=== PATIENT | female | born 1985 | race Caucasian/White ===

== ENCOUNTER 2019-08-11 11:21 | Inpatient (IN) | payer MEDICAID, OTHER ==
[~2019-08-11] VITALS: Ht 160 cm; Wt 154.9 kg
[~2019-08-11 11:21] MED LIST: ARIP10TA8 PO; ARIP5TAB8 PO; DIVA-80 PO; DOCU-119 PO
[2019-08-11] MEDS ORDERED: LORazepam 2 MG/ML VIAL IM ONE (11:45)
[2019-08-11] MEDS ORDERED: HALOPERIDOL LACTATE 5 MG/ML VIAL IM ONE (11:45)
[2019-08-11 13:05] LABS: BASOPHILS % (AUTO) 0.9 % (0.0-2.0); EOSINOPHILS % (AUTO) 2.9 % (1.0-6.0); HEMATOCRIT 37.6 % (36-46); HEMOGLOBIN 12.8 g/dL (12.0-16.0); LYMPHOCYTES # (AUTO) 2.2 K/uL (1.0-4.8); LYMPHOCYTES % (AUTO) 35.7 % (22.0-44.0); MEAN CORPUSCULAR HEMOGLOBIN 31.1 pg (26.0-34.0); MEAN CORPUSCULAR HGB CONC 33.9 G/dL (31.0-37.0); MEAN CORPUSCULAR VOLUME 92 fL (80-100); MONOCYTES # (AUTO) 0.7 K/uL (0.1-1.0); MONOCYTES % (AUTO) 12.3 % (2.0-9.0); NEUTROPHILS # (AUTO) 2.9 K/uL (1.8-7.7); NEUTROPHILS % (AUTO) 48.2 % (40.0-70.0); PLATELET COUNT (AUTO) 257 K/uL (150-450); RED CELL DISTRIBUTION WIDTH 13.5 % (11.5-14.5)
[2019-08-11 13:19] LABS: ANION GAP 10 mmol/L (8-16); CALCIUM, TOTAL 8.8 mg/dL (8.8-10.5); CARBON DIOXIDE 26 mmol/L (22-29); CHLORIDE 104 mmol/L (98-107); CREATININE 0.49 mg/dL (0.60-1.30); GLOMERULAR FILTR. RATE CALC > 60 mL/min (>60); GLUCOSE,RANDOM 88 mg/dL (70-110); POTASSIUM 3.6 mmol/L (3.5-5.1); SODIUM SERUM 140 mmol/L (136-145); UREA NITROGEN, BLOOD 7 mg/dL (7-18)
[2019-08-11 13:25] LABS: ALANINE AMINOTRANSFERASE 19 U/L (12-78); ALKALINE PHOSPHATASE 94 U/L (46-116); ASPARTATE AMINOTRANSFERASE 19 U/L (15-37); BILIRUBIN,TOTAL 0.3 mg/dL (0.1-1.0); TOTAL PROTEIN, SERUM 8.1 g/dL (6.4-8.2)
[2019-08-11] MEDS ORDERED: 0.9% SODIUM CHLORIDE 10 ML SYRINGE IVP PRN (14:00)
[2019-08-11] MEDS ORDERED: ACETAMINOPHEN 325 MG TABLET PO PRN ×2 (14:00→15:15)
[2019-08-11] MEDS ORDERED: LOPERAMIDE HCL 2 MG CAPSULE PO PRN (15:15)
[2019-08-11] MEDS ORDERED: OLANZapine 5 MG RAPDIS TABLET PO PRN (15:15)
[2019-08-11] MEDS ORDERED: HydrOXYzine PAMOATE 50 MG CAPSULE PO PRN (15:15)
[2019-08-11] MEDS ORDERED: PROMETHAZINE HCL 25 MG TABLET PO PRN (15:15)
[2019-08-11] MEDS ORDERED: ZOLPIDEM TARTRATE 10 MG TABLET PO PRN (15:15)
[2019-08-11] MEDS ORDERED: MAG HYDROX/AL HYDROX/SIMETH ES 30 ML SUSPENSION UDCUP PO PRN (15:15)
[2019-08-11] MEDS ORDERED: MAGNESIUM HYDROXIDE SUSPENSION 30 ML UDCUP PO PRN (15:15)
[2019-08-11] MEDS ORDERED: GuaiFENesin/D-METHORPHAN [SUGAR-FREE] 200-20MG/10 ML SYRUP UDCUP PO PRN (15:15)
[2019-08-11] MEDS ORDERED: TUBERCULIN, PURIFIED PROTEIN DERIVATIVE 5 TU/0.1 ML SYRINGE ID ONE (15:15)
[2019-08-11] MEDS: THIAMINE 100 MG TABLET PO SCH (17:38)
[2019-08-11 17:53] LABS: HCG,QUANTITATIVE < 1 mIU/mL (0-6)
[2019-08-11 18:59] VITALS: BP 105/72
[2019-08-11] MEDS ORDERED: OLANZapine 5 MG RAPDIS TABLET PO SCH (21:00)
[2019-08-11] MEDS: DIVALPROEX SODIUM 250 MG ER TABLET PO SCH (21:01)
[2019-08-12 07:30] LABS: BASOPHILS % (AUTO) 0.7 % (0.0-2.0); EOSINOPHILS % (AUTO) 4.1 % (1.0-6.0); HEMATOCRIT 38.9 % (36-46); HEMOGLOBIN 13.2 g/dL (12.0-16.0); MEAN CORPUSCULAR HEMOGLOBIN 31.3 pg (26.0-34.0); MEAN CORPUSCULAR HGB CONC 33.8 G/dL (31.0-37.0); MEAN CORPUSCULAR VOLUME 92 fL (80-100); MONOCYTES # (AUTO) 0.6 K/uL (0.1-1.0); MONOCYTES % (AUTO) 10.9 % (2.0-9.0); NEUTROPHILS # (AUTO) 2.5 K/uL (1.8-7.7); NEUTROPHILS % (AUTO) 47.3 % (40.0-70.0); PLATELET COUNT (AUTO) 248 K/uL (150-450); RED BLOOD CELL COUNT(AUTO) 4.21 MIL/uL (4.00-5.20); RED CELL DISTRIBUTION WIDTH 13.9 % (11.5-14.5)
[2019-08-12 07:53] LABS: ALANINE AMINOTRANSFERASE 21 U/L (12-78); ALBUMIN 3.7 g/dL (3.4-5.0); ALKALINE PHOSPHATASE 92 U/L (46-116); ANION GAP 9 mmol/L (8-16); ASPARTATE AMINOTRANSFERASE 25 U/L (15-37); BILIRUBIN,TOTAL 0.3 mg/dL (0.1-1.0); CALCIUM, TOTAL 8.7 mg/dL (8.8-10.5); CARBON DIOXIDE 27 mmol/L (22-29); CHLORIDE 103 mmol/L (98-107); CHOLESTEROL 140 mg/dL (131-200); CREATININE 0.63 mg/dL (0.60-1.30); FREE T4 (FREE THYROXINE) 1.08 ng/dL (0.76-1.46); GLOMERULAR FILTR. RATE CALC > 60 mL/min (>60); GLUCOSE,RANDOM 81 mg/dL (70-110); HDL CHOLESTEROL 46 mg/dL (40-60); LDL CHOL (CALC.) 74 mg/dL (0-130); POTASSIUM 4.6 mmol/L (3.5-5.1); SODIUM SERUM 139 mmol/L (136-145); THYROID STIMULATING HORMONE 0.33 uIU/mL (0.36-3.74); TOTAL PROTEIN, SERUM 7.7 g/dL (6.4-8.2); TRIGLYCERIDES 98 mg/dL (15-150); UREA NITROGEN, BLOOD 8 mg/dL (7-18)
[2019-08-12 08:13] LABS: HEMOGLOBIN A1C 4.9 % (3.8-5.6)
[2019-08-12] MEDS: FOLIC ACID 1 MG TABLET PO SCH (08:40)
[2019-08-12] MEDS: THIAMINE 100 MG TABLET PO SCH ×3 (08:40→17:29)
[2019-08-12] MEDS: MULTIVITAMINS WITH MINERALS, THERAPEUTIC TABLET PO SCH (08:40)
[2019-08-12] MEDS: OLANZapine 5 MG RAPDIS TABLET PO PRN (08:41)
[2019-08-12] MEDS: LORazepam 2 MG TABLET PO PRN (08:41)
[2019-08-12] MEDS ORDERED: DiphenhydrAMINE HCL 50 MG/ML VIAL IM ONE (09:15)
[2019-08-12] MEDS ORDERED: LORazepam 2 MG/ML VIAL IM ONE (09:15)
[2019-08-12] MEDS ORDERED: HALOPERIDOL LACTATE 5 MG/ML VIAL IM ONE (09:15)
[2019-08-12] MEDS ORDERED: HALOPERIDOL LACTATE 5 MG/ML VIAL ONE (09:19)
[2019-08-12] MEDS ORDERED: DiphenhydrAMINE HCL 50 MG/ML VIAL ONE (09:20)
[2019-08-12 10:39] VITALS: BP 129/74
[2019-08-12 16:53] VITALS: BP 104/67
[2019-08-12] MEDS: DIVALPROEX SODIUM 250 MG ER TABLET PO SCH (20:25)
[2019-08-12] MEDS ORDERED: OLANZapine 10 MG RAPDIS TABLET PO SCH (21:00)
[2019-08-12] MEDS ORDERED: OLANZapine 5 MG RAPDIS TABLET PO SCH (21:00)
[2019-08-13] MEDS: FOLIC ACID 1 MG TABLET PO SCH (08:26)
[2019-08-13] MEDS: THIAMINE 100 MG TABLET PO SCH ×2 (08:26→16:21)
[2019-08-13] MEDS: MULTIVITAMINS WITH MINERALS, THERAPEUTIC TABLET PO SCH (08:26)
[2019-08-13] MEDS: OLANZapine 5 MG RAPDIS TABLET PO PRN (08:29)
[2019-08-13] MEDS: LORazepam 2 MG TABLET PO PRN (08:29)
[2019-08-13] MEDS: OLANZapine 10 MG RAPDIS TABLET PO SCH (20:37)
[2019-08-13] MEDS: DIVALPROEX SODIUM 250 MG ER TABLET PO SCH (20:39)
[2019-08-14] MEDS: THIAMINE 100 MG TABLET PO SCH ×2 (08:17→16:45)
[2019-08-14] MEDS: MULTIVITAMINS WITH MINERALS, THERAPEUTIC TABLET PO SCH (08:17)
[2019-08-14] MEDS: FOLIC ACID 1 MG TABLET PO SCH (08:17)
[2019-08-14] MEDS: LORazepam 2 MG TABLET PO PRN (08:18)
[2019-08-14] MEDS: OLANZapine 5 MG RAPDIS TABLET PO PRN (08:18)
[2019-08-14] MEDS: DIVALPROEX SODIUM 250 MG ER TABLET PO SCH (21:40)
[2019-08-14] MEDS: OLANZapine 10 MG RAPDIS TABLET PO SCH (21:41)
[2019-08-15 08:55] VITALS: BP 106/63
[2019-08-15] MEDS: THIAMINE 100 MG TABLET PO SCH ×2 (09:04→16:30)
[2019-08-15] MEDS: MULTIVITAMINS WITH MINERALS, THERAPEUTIC TABLET PO SCH (09:04)
[2019-08-15] MEDS: FOLIC ACID 1 MG TABLET PO SCH (09:04)
[2019-08-15] MEDS: LORazepam 2 MG TABLET PO PRN (11:53)
[2019-08-15] MEDS: OLANZapine 5 MG RAPDIS TABLET PO PRN (11:53)
[2019-08-15 16:32] VITALS: BP 109/79
[2019-08-15] MEDS ORDERED: NALT50TA PO (20:48)
[2019-08-15] MEDS ORDERED: OLAN10TA22 PO (20:48)
[2019-08-15] MEDS ORDERED: DIVA-85 PO (20:48)
[2019-08-15] MEDS: OLANZapine 10 MG RAPDIS TABLET PO SCH (20:54)
[2019-08-15] MEDS: DIVALPROEX SODIUM 250 MG ER TABLET PO SCH (20:54)
[2019-08-16] MEDS: LORazepam 2 MG TABLET PO PRN (07:48)
[2019-08-16] MEDS: FOLIC ACID 1 MG TABLET PO SCH (09:00)
[2019-08-16] MEDS: THIAMINE 100 MG TABLET PO SCH ×2 (09:00→16:27)
[2019-08-16] MEDS: MULTIVITAMINS WITH MINERALS, THERAPEUTIC TABLET PO SCH (09:00)
[2019-08-16 11:42] VITALS: BP 126/74
[2019-08-16 17:57] VITALS: BP 122/76
[2019-08-16] MEDS: OLANZapine 10 MG RAPDIS TABLET PO SCH (20:47)
[2019-08-16] MEDS: DIVALPROEX SODIUM 250 MG ER TABLET PO SCH (20:47)
[2019-08-17] MEDS: THIAMINE 100 MG TABLET PO SCH ×2 (08:38→16:20)
[2019-08-17] MEDS: FOLIC ACID 1 MG TABLET PO SCH (08:38)
[2019-08-17] MEDS: MULTIVITAMINS WITH MINERALS, THERAPEUTIC TABLET PO SCH (08:38)
[2019-08-17] MEDS: LORazepam 2 MG TABLET PO PRN ×2 (08:43→16:24)
[2019-08-17] MEDS: OLANZapine 5 MG RAPDIS TABLET PO PRN (09:21)
[2019-08-17 16:00] VITALS: BP 113/94
[2019-08-17] MEDS: OLANZapine 10 MG RAPDIS TABLET PO SCH (20:16)
[2019-08-17] MEDS: DIVALPROEX SODIUM 250 MG ER TABLET PO SCH (20:16)
[2019-08-18] MEDS: MULTIVITAMINS WITH MINERALS, THERAPEUTIC TABLET PO SCH (08:09)
[2019-08-18] MEDS: FOLIC ACID 1 MG TABLET PO SCH (08:09)
[2019-08-18] MEDS: LORazepam 2 MG TABLET PO PRN (08:09)
[2019-08-18] MEDS: OLANZapine 5 MG RAPDIS TABLET PO PRN (08:09)
[2019-08-18] MEDS: THIAMINE 100 MG TABLET PO SCH ×2 (08:10→16:41)
[2019-08-18 10:01] VITALS: BP 120/79
[2019-08-18 16:28] VITALS: BP 123/79
[2019-08-18] MEDS: DIVALPROEX SODIUM 250 MG ER TABLET PO SCH (20:17)
[2019-08-18] MEDS: OLANZapine 10 MG RAPDIS TABLET PO SCH (20:18)
[2019-08-18] MEDS: DiphenhydrAMINE HCL 25 MG CAPSULE PO SCH (21:52)
[2019-08-19] MEDS: MULTIVITAMINS WITH MINERALS, THERAPEUTIC TABLET PO SCH (08:24)
[2019-08-19] MEDS: OLANZapine 5 MG RAPDIS TABLET PO PRN ×3 (08:24→19:10)
[2019-08-19] MEDS: LORazepam 2 MG TABLET PO PRN ×3 (08:24→18:37)
[2019-08-19] MEDS: FOLIC ACID 1 MG TABLET PO SCH (08:24)
[2019-08-19] MEDS: THIAMINE 100 MG TABLET PO SCH ×2 (08:24→16:41)
[2019-08-19 16:14] VITALS: BP 104/64
[2019-08-19] MEDS: DIVALPROEX SODIUM 500 MG ER TABLET PO SCH (20:11)
[2019-08-19] MEDS: OLANZapine 10 MG RAPDIS TABLET PO SCH (20:11)
[2019-08-19] MEDS: DiphenhydrAMINE HCL 25 MG CAPSULE PO SCH (20:11)
[2019-08-20 05:44] VITALS: BP 116/81
[2019-08-20] MEDS: FOLIC ACID 1 MG TABLET PO SCH (09:19)
[2019-08-20] MEDS: THIAMINE 100 MG TABLET PO SCH ×2 (09:20→16:28)
[2019-08-20] MEDS: MULTIVITAMINS WITH MINERALS, THERAPEUTIC TABLET PO SCH (09:20)
[2019-08-20] MEDS: OLANZapine 5 MG RAPDIS TABLET PO PRN ×2 (09:21→15:48)
[2019-08-20] MEDS: LORazepam 2 MG TABLET PO PRN ×2 (09:21→15:48)
[2019-08-20 09:26] VITALS: BP 121/78
[2019-08-20] MEDS: DIVALPROEX SODIUM 500 MG ER TABLET PO SCH (20:02)
[2019-08-20] MEDS: DiphenhydrAMINE HCL 25 MG CAPSULE PO SCH (20:02)
[2019-08-20] MEDS: OLANZapine 10 MG RAPDIS TABLET PO SCH (20:03)
[2019-08-21 01:20] VITALS: BP 97/63
[2019-08-21] MEDS: DIVALPROEX SODIUM 500 MG ER TABLET PO SCH ×2 (08:24→21:18)
[2019-08-21] MEDS: MULTIVITAMINS WITH MINERALS, THERAPEUTIC TABLET PO SCH (08:24)
[2019-08-21] MEDS: OLANZapine 5 MG RAPDIS TABLET PO PRN ×2 (08:24→15:30)
[2019-08-21] MEDS: FOLIC ACID 1 MG TABLET PO SCH (08:24)
[2019-08-21] MEDS: LORazepam 2 MG TABLET PO PRN ×3 (08:24→20:20)
[2019-08-21] MEDS: THIAMINE 100 MG TABLET PO SCH (08:24)
[2019-08-21] MEDS: OLANZapine 10 MG RAPDIS TABLET PO SCH (21:19)
[2019-08-21] MEDS: DiphenhydrAMINE HCL 25 MG CAPSULE PO SCH (21:20)
[2019-08-22] MEDS: MULTIVITAMINS WITH MINERALS, THERAPEUTIC TABLET PO SCH (08:28)
[2019-08-22] MEDS: LORazepam 2 MG TABLET PO PRN (08:28)
[2019-08-22] MEDS: DIVALPROEX SODIUM 500 MG ER TABLET PO SCH (08:28)
[2019-08-22] MEDS: OLANZapine 5 MG RAPDIS TABLET PO PRN (08:29)
== END 2019-08-22 13:40 | disposition home or self-care (01) | DRG 885 ==
LOC: EMS 11:27 → 3EC 15:08
PROVIDERS: ADMIT Psychiatry & Neurology Psychiatry; ATTEND Psychiatry & Neurology Psychiatry
DX: F25.0 Schizoaffective disorder, bipolar type (principal); G93.40 Encephalopathy, unspecified; F60.0 Paranoid personality disorder; K59.00 Constipation, unspecified; F17.200 Nicotine dependence, unspecified, uncomplicated; E05.90 Thyrotoxicosis, unspecified without thyrotoxic crisis or storm; Z65.3 Problems related to other legal circumstances; Z91.19 Patient's noncompliance with other medical treatment and regimen; Z79.899 Other long term (current) drug therapy
CPT/HCPCS: 83036; 84439; 84443; 86592; 99291; G0480; J1200; J1630; J2060

== ENCOUNTER 2019-09-07 08:20 | Inpatient (IN) | payer MEDICAID ==
[~2019-09-07] VITALS: Ht 160 cm; Wt 70.0 kg
[~2019-09-07 08:20] MED LIST changes: -ARIP10TA8 PO; -ARIP5TAB8 PO; -DIVA-80 PO; +DIVA-85 PO; -DOCU-119 PO; +NALT50TA PO; +OLAN10TA22 PO
[2019-09-07] MEDS ORDERED: DiphenhydrAMINE HCL 50 MG/ML VIAL IM ONE (08:30)
[2019-09-07] MEDS ORDERED: LORazepam 2 MG/ML VIAL IM ONE (08:30)
[2019-09-07] MEDS ORDERED: HALOPERIDOL LACTATE 5 MG/ML VIAL IM ONE (08:30)
[2019-09-07] MEDS ORDERED: VENL25TA47 PO (09:31)
[2019-09-07 10:00] LABS: EOSINOPHILS % (AUTO) 1.6 % (1.0-6.0); HEMATOCRIT 36.8 % (36-46); HEMOGLOBIN 12.4 g/dL (12.0-16.0); LYMPHOCYTES % (AUTO) 28.9 % (22.0-44.0); MEAN CORPUSCULAR HEMOGLOBIN 31.2 pg (26.0-34.0); MEAN CORPUSCULAR HGB CONC 33.6 G/dL (31.0-37.0); MEAN CORPUSCULAR VOLUME 93 fL (80-100); MONOCYTES # (AUTO) 1.2 K/uL (0.1-1.0); MONOCYTES % (AUTO) 16.7 % (2.0-9.0); NEUTROPHILS # (AUTO) 3.6 K/uL (1.8-7.7); NEUTROPHILS % (AUTO) 51.8 % (40.0-70.0); PLATELET COUNT (AUTO) 214 K/uL (150-450); RED BLOOD CELL COUNT(AUTO) 3.96 MIL/uL (4.00-5.20); RED CELL DISTRIBUTION WIDTH 14.1 % (11.5-14.5)
[2019-09-07 10:09] LABS: ANION GAP 4 mmol/L (8-16); CARBON DIOXIDE 31 mmol/L (22-29); CHLORIDE 104 mmol/L (98-107); GLOMERULAR FILTR. RATE CALC > 60 mL/min (>60); GLUCOSE,RANDOM 75 mg/dL (70-110); POTASSIUM 3.3 mmol/L (3.5-5.1); SODIUM SERUM 139 mmol/L (136-145); UREA NITROGEN, BLOOD 12 mg/dL (7-18)
[2019-09-07 10:17] LABS: ALANINE AMINOTRANSFERASE 18 U/L (12-78); ALBUMIN 3.7 g/dL (3.4-5.0); ALKALINE PHOSPHATASE 74 U/L (46-116); ASPARTATE AMINOTRANSFERASE 20 U/L (15-37); BILIRUBIN,TOTAL 0.3 mg/dL (0.1-1.0); TOTAL PROTEIN, SERUM 7.7 g/dL (6.4-8.2)
[2019-09-07] MEDS ORDERED: ZOLPIDEM TARTRATE 10 MG TABLET PO PRN (11:15)
[2019-09-07] MEDS ORDERED: HALOPERIDOL 5 MG TABLET PO PRN (11:15)
[2019-09-08] MEDS: LORazepam 2 MG TABLET PO PRN (03:16)
[2019-09-08 06:16] LABS: AMPHET/METH SCREEN,URINE POSITIVE (NEGATIVE); BARBITURATE SCREEN, URINE NEGATIVE (NEGATIVE); BENZODIAZEPINES SCREEN,URINE NEGATIVE (NEGATIVE); CANNABINOID SCREEN,URINE POSITIVE (NEGATIVE); COCAINE SCREEN,URINE NEGATIVE (NEGATIVE); METHADONE SCREEN, URINE NEGATIVE (NEGATIVE); OPIATE SCREEN,URINE NEGATIVE (NEGATIVE)
[2019-09-08 06:18] LABS: PHENCYCLIDINE SCREEN,URINE NEGATIVE (NEGATIVE)
[2019-09-08 15:18] VITALS: BP 115/67
[2019-09-08 16:54] VITALS: BP 100/74
[2019-09-08] MEDS ORDERED: MAGNESIUM HYDROXIDE SUSPENSION 30 ML UDCUP PO PRN (18:15)
[2019-09-08] MEDS ORDERED: HydrOXYzine PAMOATE 50 MG CAPSULE PO PRN (18:15)
[2019-09-08] MEDS ORDERED: MAG HYDROX/AL HYDROX/SIMETH ES 30 ML SUSPENSION UDCUP PO PRN (18:15)
[2019-09-08] MEDS ORDERED: LOPERAMIDE HCL 2 MG CAPSULE PO PRN (18:15)
[2019-09-08] MEDS ORDERED: ACETAMINOPHEN 325 MG TABLET PO PRN (18:15)
[2019-09-08] MEDS ORDERED: PROMETHAZINE HCL 25 MG TABLET PO PRN (18:15)
[2019-09-08] MEDS ORDERED: GuaiFENesin/D-METHORPHAN [SUGAR-FREE] 200-20MG/10 ML SYRUP UDCUP PO PRN (18:15)
[2019-09-09 01:57] VITALS: BP 108/77
[2019-09-09 08:05] VITALS: BP 120/71
[2019-09-09] MEDS: FOLIC ACID 1 MG TABLET PO SCH (08:27)
[2019-09-09] MEDS: THIAMINE 100 MG TABLET PO SCH ×2 (08:27→16:27)
[2019-09-09] MEDS: MULTIVITAMINS WITH MINERALS, THERAPEUTIC TABLET PO SCH (08:28)
[2019-09-09] MEDS: LORazepam 2 MG TABLET PO PRN (08:28)
[2019-09-09] MEDS ORDERED: POTASSIUM CHLORIDE 20 MEQ ER TABLET PO ONE (12:00)
[2019-09-09 16:36] VITALS: BP 103/69
[2019-09-09] MEDS: DIVALPROEX SODIUM 500 MG ER TABLET PO SCH (19:58)
[2019-09-09] MEDS ORDERED: OLANZapine 5 MG RAPDIS TABLET PO SCH (21:00)
[2019-09-10 01:30] VITALS: BP 100/73
[2019-09-10 08:19] LABS: ANION GAP 7 mmol/L (8-16); CARBON DIOXIDE 27 mmol/L (22-29); CHLORIDE 105 mmol/L (98-107); CREATININE 0.58 mg/dL (0.60-1.30); GLOMERULAR FILTR. RATE CALC > 60 mL/min (>60); GLUCOSE,RANDOM 84 mg/dL (70-110); POTASSIUM 4.5 mmol/L (3.5-5.1); SODIUM SERUM 139 mmol/L (136-145); UREA NITROGEN, BLOOD 13 mg/dL (7-18)
[2019-09-10 08:39] LABS: VALPROIC ACID 68 mcg/mL (50-100)
[2019-09-10] MEDS: LORazepam 2 MG TABLET PO PRN ×2 (09:17→13:48)
[2019-09-10] MEDS: MULTIVITAMINS WITH MINERALS, THERAPEUTIC TABLET PO SCH (09:17)
[2019-09-10] MEDS: NALTREXONE HCL 50 MG TABLET PO SCH (09:17)
[2019-09-10] MEDS: THIAMINE 100 MG TABLET PO SCH ×2 (09:17→16:30)
[2019-09-10] MEDS: FOLIC ACID 1 MG TABLET PO SCH (09:17)
[2019-09-10] MEDS: OLANZapine 5 MG RAPDIS TABLET PO PRN ×2 (09:17→13:48)
[2019-09-10] MEDS ORDERED: HALOPERIDOL LACTATE 5 MG/ML VIAL ONE ×2 (11:52)
[2019-09-10] MEDS ORDERED: DiphenhydrAMINE HCL 50 MG/ML VIAL ONE (11:53)
[2019-09-10] MEDS ORDERED: LORazepam 2 MG/ML VIAL IM ONE (12:00)
[2019-09-10] MEDS ORDERED: DiphenhydrAMINE HCL 50 MG/ML VIAL IM ONE (12:00)
[2019-09-10] MEDS ORDERED: HALOPERIDOL LACTATE 5 MG/ML VIAL IM ONE (12:00)
[2019-09-10 16:47] VITALS: BP 109/68
[2019-09-10] MEDS ORDERED: ARIPiprazole ER SUSPENSION 400 MG PRE-FILLED DUAL CHAMBER SYRINGE IM ONE (18:45)
[2019-09-10] MEDS: OLANZapine 10 MG RAPDIS TABLET PO SCH (20:24)
[2019-09-10] MEDS: DIVALPROEX SODIUM 500 MG ER TABLET PO SCH (20:24)
[2019-09-11 03:31] VITALS: BP 114/71
[2019-09-11 08:42] VITALS: BP 116/74
[2019-09-11] MEDS: VENLAFAXINE HCL 75 MG ER CAPSULE PO SCH (08:59)
[2019-09-11] MEDS: THIAMINE 100 MG TABLET PO SCH ×2 (09:00→16:07)
[2019-09-11] MEDS: MULTIVITAMINS WITH MINERALS, THERAPEUTIC TABLET PO SCH (09:00)
[2019-09-11] MEDS: LORazepam 2 MG TABLET PO PRN (09:00)
[2019-09-11] MEDS: NALTREXONE HCL 50 MG TABLET PO SCH (09:00)
[2019-09-11] MEDS: FOLIC ACID 1 MG TABLET PO SCH (09:00)
[2019-09-11 17:05] VITALS: BP 124/75
[2019-09-11] MEDS: OLANZapine 10 MG RAPDIS TABLET PO SCH (20:20)
[2019-09-11] MEDS: DIVALPROEX SODIUM 500 MG ER TABLET PO SCH (20:20)
[2019-09-12 01:29] VITALS: BP 122/73
[2019-09-12] MEDS: VENLAFAXINE HCL 75 MG ER CAPSULE PO SCH (09:30)
[2019-09-12] MEDS: THIAMINE 100 MG TABLET PO SCH ×2 (09:30→16:38)
[2019-09-12] MEDS: MULTIVITAMINS WITH MINERALS, THERAPEUTIC TABLET PO SCH (09:30)
[2019-09-12] MEDS: FOLIC ACID 1 MG TABLET PO SCH (09:30)
[2019-09-12] MEDS: NALTREXONE HCL 50 MG TABLET PO SCH (09:30)
[2019-09-12] MEDS: LORazepam 2 MG TABLET PO PRN (09:32)
[2019-09-12] MEDS: OLANZapine 10 MG RAPDIS TABLET PO SCH (20:24)
[2019-09-12] MEDS: DIVALPROEX SODIUM 500 MG ER TABLET PO SCH (20:24)
[2019-09-13 06:39] VITALS: BP 90/62
[2019-09-13 08:03] VITALS: BP 109/58
[2019-09-13] MEDS: LORazepam 2 MG TABLET PO PRN ×2 (08:30→16:59)
[2019-09-13] MEDS: MULTIVITAMINS WITH MINERALS, THERAPEUTIC TABLET PO SCH (08:30)
[2019-09-13] MEDS: FOLIC ACID 1 MG TABLET PO SCH (08:30)
[2019-09-13] MEDS: VENLAFAXINE HCL 75 MG ER CAPSULE PO SCH (08:30)
[2019-09-13] MEDS: THIAMINE 100 MG TABLET PO SCH ×2 (08:30→16:59)
[2019-09-13] MEDS: NALTREXONE HCL 50 MG TABLET PO SCH (08:30)
[2019-09-13 16:36] VITALS: BP_SYST 100; BP_SYST 115; BP_DIAS 60; BP_DIAS 69
[2019-09-13] MEDS: OLANZapine 10 MG RAPDIS TABLET PO SCH (20:16)
[2019-09-13] MEDS: DIVALPROEX SODIUM 500 MG ER TABLET PO SCH (20:16)
[2019-09-14 05:58] VITALS: BP 112/73
[2019-09-14 08:08] VITALS: BP 116/71
[2019-09-14] MEDS: MULTIVITAMINS WITH MINERALS, THERAPEUTIC TABLET PO SCH (08:43)
[2019-09-14] MEDS: NALTREXONE HCL 50 MG TABLET PO SCH (08:43)
[2019-09-14] MEDS: FOLIC ACID 1 MG TABLET PO SCH (08:43)
[2019-09-14] MEDS: THIAMINE 100 MG TABLET PO SCH ×2 (08:44→16:27)
[2019-09-14] MEDS: VENLAFAXINE HCL 75 MG ER CAPSULE PO SCH (08:44)
[2019-09-14 16:25] VITALS: BP 121/67
[2019-09-14] MEDS: LORazepam 2 MG TABLET PO PRN (16:27)
[2019-09-14] MEDS: OLANZapine 10 MG RAPDIS TABLET PO SCH (20:26)
[2019-09-14] MEDS: DIVALPROEX SODIUM 500 MG ER TABLET PO SCH (20:26)
[2019-09-15 01:54] VITALS: BP 116/72
[2019-09-15] MEDS: MULTIVITAMINS WITH MINERALS, THERAPEUTIC TABLET PO SCH (08:43)
[2019-09-15] MEDS: NALTREXONE HCL 50 MG TABLET PO SCH (08:43)
[2019-09-15] MEDS: LORazepam 2 MG TABLET PO PRN (08:43)
[2019-09-15] MEDS: FOLIC ACID 1 MG TABLET PO SCH (08:43)
[2019-09-15] MEDS: THIAMINE 100 MG TABLET PO SCH ×2 (08:43→16:17)
[2019-09-15] MEDS: VENLAFAXINE HCL 75 MG ER CAPSULE PO SCH (08:43)
[2019-09-15] MEDS ORDERED: NALT50TA PO (14:51)
[2019-09-15] MEDS ORDERED: VENL-67 PO (14:51)
[2019-09-15] MEDS ORDERED: DIVA-80 PO (14:51)
[2019-09-15] MEDS ORDERED: OLAN10TA22 PO (14:51)
[2019-09-15 16:55] VITALS: BP 113/74
[2019-09-15] MEDS: DIVALPROEX SODIUM 500 MG ER TABLET PO SCH (21:13)
[2019-09-15] MEDS: OLANZapine 10 MG RAPDIS TABLET PO SCH (21:13)
[2019-09-16 01:16] VITALS: BP 100/84
[2019-09-16 08:14] VITALS: BP 110/69
[2019-09-16] MEDS: FOLIC ACID 1 MG TABLET PO SCH (08:27)
[2019-09-16] MEDS: VENLAFAXINE HCL 75 MG ER CAPSULE PO SCH (08:27)
[2019-09-16] MEDS: MULTIVITAMINS WITH MINERALS, THERAPEUTIC TABLET PO SCH (08:27)
[2019-09-16] MEDS: THIAMINE 100 MG TABLET PO SCH ×2 (08:27→16:42)
[2019-09-16] MEDS: NALTREXONE HCL 50 MG TABLET PO SCH (08:27)
[2019-09-16] MEDS: LORazepam 2 MG TABLET PO PRN (09:52)
[2019-09-16 17:21] VITALS: BP 111/72
[2019-09-16] MEDS: OLANZapine 10 MG RAPDIS TABLET PO SCH (21:11)
[2019-09-16] MEDS: DIVALPROEX SODIUM 500 MG ER TABLET PO SCH (21:11)
[2019-09-17 04:07] VITALS: BP 101/77
[2019-09-17 08:25] VITALS: BP 110/66
[2019-09-17] MEDS: THIAMINE 100 MG TABLET PO SCH ×3 (09:00→16:29)
[2019-09-17] MEDS: VENLAFAXINE HCL 75 MG ER CAPSULE PO SCH ×2 (09:00→12:34)
[2019-09-17] MEDS: NALTREXONE HCL 50 MG TABLET PO SCH ×2 (09:00→12:35)
[2019-09-17] MEDS: FOLIC ACID 1 MG TABLET PO SCH ×2 (09:00→12:35)
[2019-09-17] MEDS: MULTIVITAMINS WITH MINERALS, THERAPEUTIC TABLET PO SCH ×2 (09:00→12:35)
[2019-09-17] MEDS: LORazepam 2 MG TABLET PO PRN (12:35)
[2019-09-17 16:36] VITALS: BP 112/70
[2019-10-08] MEDS ORDERED: ARIPiprazole ER SUSPENSION 400 MG PRE-FILLED DUAL CHAMBER SYRINGE IM SCH (09:00)
== END 2019-09-17 18:00 | disposition home or self-care (01) | DRG 885 ==
LOC: EMS 08:21 → B3A 09-08 13:29 → EMS 09-08 13:30 → B3A 09-08 13:55
PROVIDERS: ADMIT Psychiatry & Neurology Psychiatry; ATTEND Psychiatry & Neurology Psychiatry
DX: F25.0 Schizoaffective disorder, bipolar type (principal); F29 Unspecified psychosis not due to a substance or known physiological condition; K59.00 Constipation, unspecified; D64.9 Anemia, unspecified; E87.6 Hypokalemia; F12.10 Cannabis abuse, uncomplicated; Z91.14 Patient's other noncompliance with medication regimen; Z91.19 Patient's noncompliance with other medical treatment and regimen; Z59.0 Homelessness; Z79.899 Other long term (current) drug therapy
CPT/HCPCS: 80074; 87081; G0480; J0401; J1200; J1630; J2060

== ENCOUNTER 2019-12-01 13:52 | Inpatient (IN) | payer MEDICAID, OTHER ==
[~2019-12-01] VITALS: Ht 160 cm; Wt 69.8 kg
[~2019-12-01 13:52] MED LIST changes: +DIVA-80 PO; -DIVA-85 PO; +VENL-67 PO
[2019-12-01 15:44] LABS: BASOPHILS % (AUTO) 0.7 % (0.0-2.0); EOSINOPHILS % (AUTO) 1.1 % (1.0-6.0); HEMATOCRIT 38.4 % (36-46); HEMOGLOBIN 12.9 g/dL (12.0-16.0); LYMPHOCYTES % (AUTO) 22.7 % (22.0-44.0); MEAN CORPUSCULAR HEMOGLOBIN 31.5 pg (26.0-34.0); MEAN CORPUSCULAR HGB CONC 33.7 G/dL (31.0-37.0); MEAN CORPUSCULAR VOLUME 94 fL (80-100); MONOCYTES # (AUTO) 0.7 K/uL (0.1-1.0); MONOCYTES % (AUTO) 8.3 % (2.0-9.0); NEUTROPHILS % (AUTO) 67.2 % (40.0-70.0); PLATELET COUNT (AUTO) 267 K/uL (150-450); RED CELL DISTRIBUTION WIDTH 13.1 % (11.5-14.5)
[2019-12-01] MEDS ORDERED: LOPERAMIDE HCL 2 MG CAPSULE PO PRN (15:45)
[2019-12-01] MEDS ORDERED: HydrOXYzine PAMOATE 50 MG CAPSULE PO PRN (15:45)
[2019-12-01] MEDS ORDERED: GuaiFENesin/D-METHORPHAN [SUGAR-FREE] 200-20MG/10 ML SYRUP UDCUP PO PRN (15:45)
[2019-12-01] MEDS ORDERED: OLANZapine 5 MG RAPDIS TABLET PO PRN (15:45)
[2019-12-01] MEDS ORDERED: PROMETHAZINE HCL 25 MG TABLET PO PRN (15:45)
[2019-12-01] MEDS ORDERED: ACETAMINOPHEN 325 MG TABLET PO PRN (15:45)
[2019-12-01] MEDS ORDERED: MAG HYDROX/AL HYDROX/SIMETH ES 30 ML SUSPENSION UDCUP PO PRN (15:45)
[2019-12-01] MEDS ORDERED: ZOLPIDEM TARTRATE 10 MG TABLET PO PRN (15:45)
[2019-12-01] MEDS ORDERED: MAGNESIUM HYDROXIDE SUSPENSION 30 ML UDCUP PO PRN (15:45)
[2019-12-01 15:53] LABS: ANION GAP 4 mmol/L (8-16); CALCIUM, TOTAL 9.2 mg/dL (8.8-10.5); CARBON DIOXIDE 29 mmol/L (22-29); CHLORIDE 101 mmol/L (98-107); CREATININE 0.73 mg/dL (0.60-1.30); GLOMERULAR FILTR. RATE CALC > 60 mL/min (>60); GLUCOSE,RANDOM 90 mg/dL (70-110); POTASSIUM 3.9 mmol/L (3.5-5.1); SODIUM SERUM 134 mmol/L (136-145); UREA NITROGEN, BLOOD 15 mg/dL (7-18)
[2019-12-01 16:04] LABS: ALANINE AMINOTRANSFERASE 17 U/L (12-78); ALBUMIN 4.1 g/dL (3.4-5.0); ALKALINE PHOSPHATASE 76 U/L (46-116); ASPARTATE AMINOTRANSFERASE 12 U/L (15-37); BILIRUBIN,TOTAL 0.4 mg/dL (0.1-1.0); HCG,QUANTITATIVE 1 mIU/mL (0-6); TOTAL PROTEIN, SERUM 7.6 g/dL (6.4-8.2)
[2019-12-01 19:22] LABS: COVID AG,FIA SOURCE NASOPHARYNGEAL
[2019-12-01] MEDS: THIAMINE 100 MG TABLET PO SCH (20:10)
[2019-12-01] MEDS ORDERED: OLANZapine 5 MG RAPDIS TABLET PO SCH (21:00)
[2019-12-01 21:31] VITALS: BP 127/79
[2019-12-01] MEDS: DIVALPROEX SODIUM 500 MG ER TABLET PO SCH (22:50)
[2019-12-01] MEDS ORDERED: INFLUENZA VIRUS VACCINE QVS 2020-21 (6MO+)/PF 60 MCG/0.5 ML SYRINGE IM ONE (23:45)
[2019-12-02 00:59] VITALS: BP 122/74
[2019-12-02 08:03] VITALS: BP 106/63
[2019-12-02] MEDS: THIAMINE 100 MG TABLET PO SCH ×2 (08:37→16:06)
[2019-12-02] MEDS: NALTREXONE HCL 50 MG TABLET PO SCH (08:37)
[2019-12-02] MEDS: OMEGA-3/DHA/EPA/FISH OIL 1,000 MG CAPSULE PO SCH (08:37)
[2019-12-02] MEDS: MULTIVITAMINS WITH MINERALS, THERAPEUTIC TABLET PO SCH (08:38)
[2019-12-02] MEDS: FOLIC ACID 1 MG TABLET PO SCH (08:38)
[2019-12-02] MEDS: LORazepam 2 MG TABLET PO PRN (08:38)
[2019-12-02 16:32] VITALS: BP 95/63
[2019-12-02 17:58] VITALS: BP 102/69
[2019-12-02] MEDS: DIVALPROEX SODIUM 500 MG ER TABLET PO SCH (20:02)
[2019-12-02] MEDS: OLANZapine 10 MG RAPDIS TABLET PO SCH (20:06)
[2019-12-03 02:08] VITALS: BP 112/70
[2019-12-03] MEDS: THIAMINE 100 MG TABLET PO SCH ×2 (09:06→20:11)
[2019-12-03] MEDS: MULTIVITAMINS WITH MINERALS, THERAPEUTIC TABLET PO SCH (09:06)
[2019-12-03] MEDS: NALTREXONE HCL 50 MG TABLET PO SCH (09:07)
[2019-12-03] MEDS: FOLIC ACID 1 MG TABLET PO SCH (09:07)
[2019-12-03] MEDS: OMEGA-3/DHA/EPA/FISH OIL 1,000 MG CAPSULE PO SCH (09:07)
[2019-12-03] MEDS: LORazepam 2 MG TABLET PO PRN (09:07)
[2019-12-03 09:18] VITALS: BP 100/62
[2019-12-03] MEDS ORDERED: ARIPiprazole ER SUSPENSION 400 MG PRE-FILLED DUAL CHAMBER SYRINGE IM ONE (13:30)
[2019-12-03 16:10] VITALS: BP 102/60
[2019-12-03] MEDS: OLANZapine 10 MG RAPDIS TABLET PO SCH (20:11)
[2019-12-03] MEDS: DIVALPROEX SODIUM 500 MG ER TABLET PO SCH (20:11)
[2019-12-04 01:24] VITALS: BP 101/66
[2019-12-04] MEDS: NALTREXONE HCL 50 MG TABLET PO SCH (08:23)
[2019-12-04] MEDS: FOLIC ACID 1 MG TABLET PO SCH (08:23)
[2019-12-04] MEDS: OMEGA-3/DHA/EPA/FISH OIL 1,000 MG CAPSULE PO SCH (08:23)
[2019-12-04] MEDS: MULTIVITAMINS WITH MINERALS, THERAPEUTIC TABLET PO SCH (08:23)
[2019-12-04] MEDS: THIAMINE 100 MG TABLET PO SCH ×2 (08:23→16:45)
[2019-12-04] MEDS ORDERED: DIVA-80 PO (15:36)
[2019-12-04] MEDS ORDERED: OLAN10TA22 PO (15:36)
[2019-12-04] MEDS ORDERED: OMEG-135 PO (15:36)
[2019-12-04] MEDS ORDERED: NALT50TA PO (15:36)
[2019-12-04] MEDS ORDERED: ARIPiprazole ER SUSPENSION 400 MG PRE-FILLED DUAL CHAMBER SYRINGE IM ONE (16:00)
[2019-12-04 17:18] VITALS: BP 120/65
[2019-12-04 18:40] VITALS: BP 120/65
[2019-12-04] MEDS: DIVALPROEX SODIUM 500 MG ER TABLET PO SCH (20:14)
[2019-12-04] MEDS: OLANZapine 10 MG RAPDIS TABLET PO SCH (20:14)
[2019-12-04] MEDS: LORazepam 2 MG TABLET PO PRN (20:17)
[2019-12-05 01:16] VITALS: BP 117/66
[2019-12-05] MEDS: OMEGA-3/DHA/EPA/FISH OIL 1,000 MG CAPSULE PO SCH (08:23)
[2019-12-05] MEDS: FOLIC ACID 1 MG TABLET PO SCH (08:23)
[2019-12-05] MEDS: NALTREXONE HCL 50 MG TABLET PO SCH (08:23)
[2019-12-05] MEDS: MULTIVITAMINS WITH MINERALS, THERAPEUTIC TABLET PO SCH (08:23)
[2019-12-05] MEDS: THIAMINE 100 MG TABLET PO SCH (08:23)
[2020-01-01] MEDS ORDERED: ARIPiprazole ER SUSPENSION 400 MG PRE-FILLED DUAL CHAMBER SYRINGE IM SCH (09:00)
== END 2019-12-05 13:15 | disposition home or self-care (01) | DRG 750 ==
LOC: EMS 13:52 → B3A 15:36 → UNDOADMIN 19:26 → B3A 20:16
PROVIDERS: ADMIT Psychiatry & Neurology Psychiatry; ATTEND Psychiatry & Neurology Psychiatry
DX: F25.9 Schizoaffective disorder, unspecified (principal); E87.1 Hypo-osmolality and hyponatremia; F12.90 Cannabis use, unspecified, uncomplicated; F15.90 Other stimulant use, unspecified, uncomplicated; F17.210 Nicotine dependence, cigarettes, uncomplicated; Z20.828 Contact with and (suspected) exposure to other viral communicable diseases; R45.87 Impulsiveness; Z55.9 Problems related to education and literacy, unspecified; Z59.9 Problem related to housing and economic circumstances, unspecified; Z91.19 Patient's noncompliance with other medical treatment and regimen
CPT/HCPCS: 87426; G0480; J0401

== ENCOUNTER 2020-01-27 16:10 | Inpatient (IN) | payer MEDICAID, OTHER ==
[~2020-01-27] VITALS: Ht 157.5 cm; Wt 66.2 kg
[~2020-01-27 16:10] MED LIST changes: +OMEG-135 PO; -VENL-67 PO
[2020-01-27 19:07] LABS: EOSINOPHILS % (AUTO) 1.7 % (1.0-6.0); HEMATOCRIT 37.5 % (36-46); HEMOGLOBIN 12.6 g/dL (12.0-16.0); LYMPHOCYTES # (AUTO) 2.5 K/uL (1.0-4.8); LYMPHOCYTES % (AUTO) 33.8 % (22.0-44.0); MEAN CORPUSCULAR HEMOGLOBIN 31.1 pg (26.0-34.0); MEAN CORPUSCULAR HGB CONC 33.6 G/dL (31.0-37.0); MEAN CORPUSCULAR VOLUME 93 fL (80-100); MONOCYTES # (AUTO) 0.9 K/uL (0.1-1.0); MONOCYTES % (AUTO) 11.6 % (2.0-9.0); NEUTROPHILS # (AUTO) 3.9 K/uL (1.8-7.7); NEUTROPHILS % (AUTO) 51.9 % (40.0-70.0); PLATELET COUNT (AUTO) 234 K/uL (150-450); RED BLOOD CELL COUNT(AUTO) 4.04 MIL/uL (4.00-5.20); RED CELL DISTRIBUTION WIDTH 13.2 % (11.5-14.5)
[2020-01-27 19:27] LABS: ANION GAP 9 mmol/L (8-16); CARBON DIOXIDE 28 mmol/L (22-29); CHLORIDE 101 mmol/L (98-107); GLOMERULAR FILTR. RATE CALC > 60 mL/min (>60); GLUCOSE,RANDOM 79 mg/dL (70-110); POTASSIUM 3.3 mmol/L (3.5-5.1); SODIUM SERUM 138 mmol/L (136-145); UREA NITROGEN, BLOOD 10 mg/dL (7-18)
[2020-01-27 19:33] LABS: ALANINE AMINOTRANSFERASE 30 U/L (12-78); ALBUMIN 4.1 g/dL (3.4-5.0); ALKALINE PHOSPHATASE 80 U/L (46-116); ASPARTATE AMINOTRANSFERASE 74 U/L (15-37); BILIRUBIN,TOTAL 0.4 mg/dL (0.1-1.0); TOTAL PROTEIN, SERUM 8.1 g/dL (6.4-8.2)
[2020-01-27 20:56] LABS: VALPROIC ACID < 3 mcg/mL (50-100)
[2020-01-27 21:52] LABS: COVID AG,FIA SOURCE NASOPHARYNGEAL
[2020-01-27] MEDS ORDERED: POTASSIUM CHLORIDE 20 MEQ ER TABLET PO ONE (22:45)
[2020-01-27] MEDS ORDERED: ZOLPIDEM TARTRATE 10 MG TABLET PO PRN (23:00)
[2020-01-28 00:32] VITALS: BP 125/71
[2020-01-28] MEDS ORDERED: INFLUENZA VIRUS VACCINE QVS 2020-21 (6MO+)/PF 60 MCG/0.5 ML SYRINGE IM ONE (00:45)
[2020-01-28 00:52] VITALS: BP 116/72
[2020-01-28] MEDS ORDERED: CloNIDine HCL 0.1 MG TABLET PO PRN (07:30)
[2020-01-28] MEDS ORDERED: LOPERAMIDE HCL 2 MG CAPSULE PO PRN (07:30)
[2020-01-28] MEDS ORDERED: ACETAMINOPHEN 325 MG TABLET PO PRN (07:30)
[2020-01-28] MEDS ORDERED: ALBUTEROL SULFATE HFA 90 MCG/PUFF 8 GM INHALER IH PRN (07:30)
[2020-01-28] MEDS ORDERED: PETROLATUM,WHITE 28 GM JELLY TP PRN (07:30)
[2020-01-28] MEDS ORDERED: MAGNESIUM HYDROXIDE SUSPENSION 30 ML UDCUP PO PRN (07:30)
[2020-01-28] MEDS ORDERED: MAG HYDROX/AL HYDROX/SIMETH ES 30 ML SUSPENSION UDCUP PO PRN (07:30)
[2020-01-28] MEDS ORDERED: IBUPROFEN 400 MG TABLET PO PRN (07:30)
[2020-01-28] MEDS ORDERED: DOCUSATE SODIUM 100 MG CAPSULE PO PRN (07:30)
[2020-01-28] MEDS ORDERED: ONDANSETRON HCL 4 MG TABLET PO PRN (07:30)
[2020-01-28] MEDS ORDERED: GuaiFENesin/D-METHORPHAN [SUGAR-FREE] 200-20MG/10 ML SYRUP UDCUP PO PRN (07:30)
[2020-01-28] MEDS ORDERED: NICOTINE 14 MG/24 HOUR PATCH TD PRN (07:30)
[2020-01-28 08:06] VITALS: BP 108/70
[2020-01-28] MEDS: HALOPERIDOL 5 MG TABLET PO PRN (08:08)
[2020-01-28] MEDS: LORazepam 2 MG TABLET PO PRN ×2 (08:08→16:13)
[2020-01-28 08:18] VITALS: BP 101/63
[2020-01-28 16:06] VITALS: BP 110/70
[2020-01-28] MEDS: OLANZapine 10 MG RAPDIS TABLET PO SCH (20:27)
[2020-01-28] MEDS: DIVALPROEX SODIUM 500 MG DR TABLET PO SCH (20:27)
[2020-01-29 00:43] VITALS: BP 104/75
[2020-01-29 07:56] LABS: CHOL/HDL RATIO 2.8 (3.9-5.7); POTASSIUM 4.7 mmol/L (3.5-5.1)
[2020-01-29] MEDS: LORazepam 2 MG TABLET PO PRN (08:10)
[2020-01-29] MEDS: HALOPERIDOL 5 MG TABLET PO PRN (08:10)
[2020-01-29] MEDS: DIVALPROEX SODIUM 500 MG DR TABLET PO SCH ×2 (08:10→20:09)
[2020-01-29 08:25] VITALS: BP 120/66
[2020-01-29 16:02] VITALS: BP 126/66
[2020-01-29] MEDS: OLANZapine 10 MG RAPDIS TABLET PO SCH (20:09)
[2020-01-30 01:20] VITALS: BP 120/77
[2020-01-30 08:12] VITALS: BP 120/69
[2020-01-30] MEDS: DIVALPROEX SODIUM 500 MG DR TABLET PO SCH ×2 (08:44→19:58)
[2020-01-30] MEDS: HALOPERIDOL 5 MG TABLET PO PRN (08:44)
[2020-01-30] MEDS: LORazepam 2 MG TABLET PO PRN ×2 (09:24→16:17)
[2020-01-30 16:13] VITALS: BP 109/63
[2020-01-30] MEDS: OLANZapine 10 MG RAPDIS TABLET PO SCH (19:58)
[2020-01-31 06:05] VITALS: BP 120/72
[2020-01-31 08:39] VITALS: BP 114/63
[2020-01-31] MEDS: DIVALPROEX SODIUM 500 MG DR TABLET PO SCH ×2 (08:53→20:08)
[2020-01-31] MEDS: LORazepam 2 MG TABLET PO PRN ×2 (10:19→16:14)
[2020-01-31] MEDS: HALOPERIDOL 5 MG TABLET PO PRN ×2 (10:19→16:14)
[2020-01-31 16:06] VITALS: BP 118/89
[2020-01-31] MEDS: OLANZapine 10 MG RAPDIS TABLET PO SCH (20:09)
[2020-02-01 05:32] VITALS: BP 112/70
[2020-02-01] MEDS: HALOPERIDOL 5 MG TABLET PO PRN ×2 (08:25→15:40)
[2020-02-01] MEDS: LORazepam 2 MG TABLET PO PRN ×2 (08:25→15:40)
[2020-02-01] MEDS: DIVALPROEX SODIUM 500 MG DR TABLET PO SCH ×2 (08:25→20:08)
[2020-02-01 08:39] VITALS: BP 123/70
[2020-02-01 16:16] VITALS: BP 119/76
[2020-02-01] MEDS ORDERED: ChlorproMAZINE HCL 50 MG/2 ML AMP ONE (16:34)
[2020-02-01] MEDS ORDERED: DiphenhydrAMINE HCL 50 MG/ML VIAL ONE (16:34)
[2020-02-01] MEDS ORDERED: DiphenhydrAMINE HCL 50 MG/ML VIAL IM ONE (16:45)
[2020-02-01] MEDS ORDERED: ChlorproMAZINE HCL 50 MG/2 ML AMP IM ONE (16:45)
[2020-02-01 17:31] VITALS: BP 121/60
[2020-02-01] MEDS: OLANZapine 10 MG RAPDIS TABLET PO SCH (20:08)
[2020-02-02 01:39] VITALS: BP 114/68
[2020-02-02] MEDS: LORazepam 2 MG TABLET PO PRN ×2 (08:01→17:37)
[2020-02-02] MEDS: DIVALPROEX SODIUM 500 MG DR TABLET PO SCH ×2 (08:01→20:19)
[2020-02-02 08:26] VITALS: BP 115/69
[2020-02-02] MEDS: HALOPERIDOL 5 MG TABLET PO PRN ×2 (08:31→17:37)
[2020-02-02] MEDS ORDERED: DiphenhydrAMINE HCL 50 MG/ML VIAL IM ONE ×2 (10:15→10:30)
[2020-02-02] MEDS ORDERED: LORazepam 2 MG/ML VIAL ONE (10:15)
[2020-02-02] MEDS ORDERED: HALOPERIDOL LACTATE 5 MG/ML VIAL IM ONE ×2 (10:15→10:30)
[2020-02-02] MEDS ORDERED: LORazepam 2 MG/ML VIAL IM ONE ×2 (10:15→10:30)
[2020-02-02 11:30] VITALS: BP 128/70
[2020-02-02 16:06] VITALS: BP 108/79
[2020-02-02] MEDS: OLANZapine 10 MG RAPDIS TABLET PO SCH (20:19)
[2020-02-03 01:17] VITALS: BP 100/73
[2020-02-03 08:22] VITALS: BP 110/66
[2020-02-03] MEDS: HALOPERIDOL 5 MG TABLET PO PRN ×3 (08:49→18:08)
[2020-02-03] MEDS: DIVALPROEX SODIUM 500 MG DR TABLET PO SCH ×2 (08:49→20:45)
[2020-02-03] MEDS: LORazepam 2 MG TABLET PO PRN ×3 (08:49→18:08)
[2020-02-03 16:12] VITALS: BP 122/76
[2020-02-03] MEDS: OLANZapine 10 MG RAPDIS TABLET PO SCH (20:46)
[2020-02-04 01:14] VITALS: BP 112/77
[2020-02-04 08:00] VITALS: BP 124/76
[2020-02-04] MEDS: HALOPERIDOL 5 MG TABLET PO PRN ×2 (08:07→15:50)
[2020-02-04] MEDS: DIVALPROEX SODIUM 500 MG DR TABLET PO SCH ×2 (08:07→20:38)
[2020-02-04] MEDS: LORazepam 2 MG TABLET PO PRN ×2 (08:07→15:50)
[2020-02-04] MEDS: OLANZapine 10 MG RAPDIS TABLET PO SCH (20:38)
[2020-02-05 01:50] VITALS: BP 120/73
[2020-02-05] MEDS: DIVALPROEX SODIUM 500 MG DR TABLET PO SCH (08:13)
[2020-02-05] MEDS: HALOPERIDOL 5 MG TABLET PO PRN (08:13)
[2020-02-05] MEDS: LORazepam 2 MG TABLET PO PRN (08:14)
[2020-02-05 08:31] VITALS: BP 110/67
[2020-02-05] MEDS ORDERED: DIVA-112 PO (09:44)
[2020-02-05] MEDS ORDERED: OLAN10TA22 PO (09:44)
== END 2020-02-05 12:00 | disposition home or self-care (01) | DRG 750 ==
LOC: EMS 16:10 → B3A 22:00
DX: F25.0 Schizoaffective disorder, bipolar type (principal); E87.6 Hypokalemia; R74.01 Elevation of levels of liver transaminase levels; F19.10 Other psychoactive substance abuse, uncomplicated; Z79.899 Other long term (current) drug therapy; Z87.820 Personal history of traumatic brain injury; Z20.828 Contact with and (suspected) exposure to other viral communicable diseases
CPT/HCPCS: 84132; 87426; G0480; J1200; J1630; J2060; J3230

== ENCOUNTER 2024-04-21 17:46 | Inpatient (IN) | payer MEDICAID, OTHER ==
[~2024-04-21] VITALS: Ht 154.9 cm; Wt 69.9 kg
[~2024-04-21 17:46] MED LIST changes: +DIVA-112 PO; -DIVA-80 PO; -NALT50TA PO; -OMEG-135 PO
[2024-04-21 20:52] LABS: BASOPHILS % (AUTO) 0.6 % (0.0-2.0); EOSINOPHILS % (AUTO) 0.8 % (1.0-6.0); HEMATOCRIT 38.2 % (36-46); HEMOGLOBIN 12.8 g/dL (12.0-16.0); LYMPHOCYTES # (AUTO) 2.8 K/uL (1.0-4.8); LYMPHOCYTES % (AUTO) 35.1 % (22.0-44.0); MEAN CORPUSCULAR HEMOGLOBIN 30.6 pg (26.0-34.0); MEAN CORPUSCULAR HGB CONC 33.6 G/dL (31.0-37.0); MEAN CORPUSCULAR VOLUME 91 fL (80-100); MONOCYTES # (AUTO) 1.2 K/uL (0.1-1.0); MONOCYTES % (AUTO) 15.3 % (2.0-9.0); NEUTROPHILS # (AUTO) 3.8 K/uL (1.8-7.7); NEUTROPHILS % (AUTO) 48.2 % (40.0-70.0); PLATELET COUNT (AUTO) 249 K/uL (150-450); RED BLOOD CELL COUNT(AUTO) 4.19 MIL/uL (4.00-5.20); RED CELL DISTRIBUTION WIDTH 13.5 % (11.5-14.5)
[2024-04-21 21:03] LABS: ANION GAP 8 mmol/L (8-16); CALCIUM, TOTAL 9.9 mg/dL (8.8-10.5); CARBON DIOXIDE 28 mmol/L (22-29); CHLORIDE 104 mmol/L (98-107); CREATININE 0.59 mg/dL (0.60-1.30); GLOMERULAR FILTR. RATE CALC > 60 mL/min (>60); GLUCOSE,RANDOM 78 mg/dL (70-110); POTASSIUM 4.4 mmol/L (3.5-5.1); SODIUM SERUM 140 mmol/L (136-145); UREA NITROGEN, BLOOD 14 mg/dL (7-18)
[2024-04-21 21:09] LABS: ALCOHOL, BLOOD (SERUM) < 3 mg/dL (0-10)
[2024-04-21 21:14] LABS: HCG,QUANTITATIVE < 1 mIU/mL (0-6)
[2024-04-21 21:23] LABS: VALPROIC ACID < 3 mcg/mL (50-100)
[2024-04-21 22:07] LABS: COVID AG,FIA SOURCE NPH
[2024-04-21] MEDS ORDERED: MAG HYDROX/ALUMINUM HYD/SIMETH ES 30 ML SUSPENSION UDCUP PO PRN (22:15)
[2024-04-21] MEDS ORDERED: LOPERAMIDE HCL 2 MG CAPSULE PO PRN (22:15)
[2024-04-21] MEDS ORDERED: HydrOXYzine PAMOATE 50 MG CAPSULE PO PRN (22:15)
[2024-04-21] MEDS ORDERED: GuaiFENesin/D-METHORPHAN [SUGAR-FREE] 200-20MG/10 ML SYRUP UDCUP PO PRN (22:15)
[2024-04-21] MEDS ORDERED: MAGNESIUM HYDROXIDE SUSPENSION 30 ML UDCUP PO PRN (22:15)
[2024-04-21] MEDS ORDERED: PROMETHAZINE HCL 25 MG TABLET PO PRN (22:15)
[2024-04-21] MEDS ORDERED: TUBERCULIN, PURIFIED PROTEIN DERIVATIVE 5 TU/0.1 ML SYRINGE ID ONE (22:15)
[2024-04-21 22:26] LABS: SARS-COV2 (COVID) ANTIGEN,FIA Negative (Negative)
[2024-04-21] MEDS: LORazepam 2 MG TABLET PO ONE (22:32)
[2024-04-21] MEDS: TraZODone HCL 50 MG TABLET PO ONE (22:32)
[2024-04-22 03:17] VITALS: RESP 16
[2024-04-22] MEDS ORDERED: INFLUENZA VIRUS VACCINE TVS (6MO+) 2024-25/PF 45 MCG/0.5 ML SYRINGE IM. ONE (04:30)
[2024-04-22 08:49] VITALS: RESP 17
[2024-04-22] MEDS: PALIPERIDONE PALMITATE 234 MG/1.5 ML SYRINGE IM ONE ×2 (09:00→14:57)
[2024-04-22 09:24] LABS: CHOL/HDL RATIO 2.5 (3.9-5.7); FREE T4 (FREE THYROXINE) 1.04 ng/dL (0.76-1.46); HEMOGLOBIN A1C 5.2 % (3.8-5.6); THYROID STIMULATING HORMONE 0.64 uIU/mL (0.36-3.74)
[2024-04-22] MEDS: MULTIVITAMINS WITH MINERALS, THERAPEUTIC TABLET PO SCH (09:37)
[2024-04-22] MEDS: FOLIC ACID 1 MG TABLET PO SCH (09:37)
[2024-04-22] MEDS: FLUoxetine HCL 20 MG CAPSULE PO SCH (09:37)
[2024-04-22] MEDS: NALTREXONE HCL 50 MG TABLET PO SCH (09:37)
[2024-04-22] MEDS: THIAMINE 100 MG TABLET PO SCH (09:37)
[2024-04-22 15:10] VITALS: BP 150/89
[2024-04-22] MEDS: OLANZapine 5 MG RAPDIS TABLET PO PRN (15:13)
[2024-04-22] MEDS: LORazepam 2 MG TABLET PO PRN (15:13)
[2024-04-22] MEDS: MELATONIN 5 MG TABLET PO SCH (20:16)
[2024-04-22] MEDS: OLANZapine 5 MG RAPDIS TABLET PO SCH (20:17)
[2024-04-22 21:00] VITALS: BP 90/61; PULSE 74; RESP 18; TEMP 97.3; O2SAT 98
[2024-04-23 06:07] LABS: HEPATITIS C AB (EIA) Non Reactive (Non Reactive)
[2024-04-23 08:02] VITALS: RESP 16
[2024-04-23] MEDS: DIVALPROEX SODIUM 500 MG ER TABLET PO SCH (16:29)
[2024-04-23 20:05] VITALS: RESP 17
[2024-04-23] MEDS: OLANZapine 10 MG RAPDIS TABLET PO SCH (20:44)
[2024-04-23 21:31] LABS: GLUCOMETER DEV NAME(LOC) BV2S.; GLUCOSE,POINT OF CARE 92 MG/DL (70-110)
[2024-04-24] MEDS: FLUoxetine HCL 20 MG CAPSULE PO SCH (09:03)
[2024-04-24] MEDS: LORazepam 2 MG/ML VIAL IM ONE (13:29)
[2024-04-24] MEDS: HALOPERIDOL LACTATE 5 MG/ML VIAL IM ONE (13:31)
[2024-04-24] MEDS: DiphenhydrAMINE HCL 50 MG/ML VIAL IM ONE (13:32)
[2024-04-24 18:15] VITALS: BP 125/99; PULSE 102; RESP 20; TEMP 97.2; O2SAT 95
[2024-04-25 08:37] VITALS: BP 119/80; PULSE 88; RESP 18; TEMP 97.5; O2SAT 96
[2024-04-25] MEDS ORDERED: FLUoxetine HCL 20 MG CAPSULE PO SCH (09:00)
[2024-04-25 20:47] VITALS: BP 109/62; PULSE 79; RESP 18; TEMP 97.5; O2SAT 97
[2024-04-25] MEDS: ARIPiprazole 5 MG TABLET PO SCH (21:11)
[2024-04-26 08:01] VITALS: BP 110/85; PULSE 85; RESP 16; TEMP 98.6; O2SAT 96
[2024-04-26] MEDS: DULoxetine HCL 20 MG CAPSULE PO SCH (08:56)
[2024-04-26] MEDS ORDERED: PALIPERIDONE PALMITATE 156 MG/ML SYRINGE IM ONE (09:00)
[2024-04-26] MEDS: ARIPiprazole ER SUSPENSION 400 MG VIAL IM ONE (09:00)
[2024-04-26 21:26] VITALS: BP 134/78; PULSE 100; RESP 18; TEMP 97.5; O2SAT 97
[2024-04-27 20:05] VITALS: BP 118/71; PULSE 88; RESP 18; TEMP 98; O2SAT 97
[2024-04-28 08:00] VITALS: BP 111/70; PULSE 91; RESP 18; TEMP 97.2; O2SAT 99
[2024-04-28 09:24] VITALS: BP 124/84; PULSE 75; RESP 16; TEMP 97.2; O2SAT 99
[2024-04-28] MEDS: GABAPENTIN 300 MG CAPSULE PO SCH (21:00)
[2024-04-28] MEDS: ZOLPIDEM TARTRATE 10 MG TABLET PO PRN (21:23)
[2024-04-29] MEDS: DULoxetine HCL 30 MG CAPSULE PO SCH (09:44)
[2024-04-29 10:13] VITALS: BP 120/52; PULSE 75; RESP 18; TEMP 97.2; O2SAT 97
[2024-04-29 20:42] VITALS: BP 118/81; PULSE 105; RESP 18; TEMP 97.9; O2SAT 95
[2024-04-29] MEDS ORDERED: OLANZapine 5 MG RAPDIS TABLET PO SCH (21:00)
[2024-04-29] MEDS: OLANZapine 10 MG RAPDIS TABLET PO SCH (21:11)
[2024-04-30] MEDS: GABAPENTIN 400 MG CAPSULE PO SCH (09:00)
[2024-04-30] MEDS: DULoxetine HCL 20 MG CAPSULE PO SCH (09:00)
[2024-04-30 10:04] VITALS: RESP 18
[2024-04-30] MEDS ORDERED: LITHIUM CARBONATE 300 MG CAPSULE ONE (12:15)
[2024-04-30 20:25] VITALS: BP 133/85; PULSE 99; RESP 16; TEMP 98.7; O2SAT 97
[2024-05-01] MEDS: ChlorproMAZINE HCL 25 MG TABLET PO SCH (08:47)
[2024-05-01 20:32] VITALS: BP 119/77; PULSE 95; RESP 18; TEMP 98.3; O2SAT 97
[2024-05-02 08:28] VITALS: RESP 18
[2024-05-03 08:20] VITALS: RESP 18
[2024-05-03 20:45] VITALS: BP 120/82; PULSE 98; RESP 16; TEMP 98.8; O2SAT 96
[2024-05-04 11:02] VITALS: BP 123/70; PULSE 84; RESP 17; TEMP 98.3; O2SAT 97
[2024-05-04 17:26] VITALS: RESP 18
[2024-05-04] MEDS: ACETAMINOPHEN 325 MG TABLET PO PRN (17:26)
[2024-05-04 18:26] VITALS: RESP 18
[2024-05-04 20:00] VITALS: BP 135/97; PULSE 96; RESP 16; TEMP 97.8; O2SAT 97
[2024-05-05 08:00] VITALS: RESP 18; O2SAT 0
[2024-05-05] MEDS ORDERED: OLAN10TA26 PO (15:39)
[2024-05-05] MEDS ORDERED: NALT50TA33 PO (15:39)
[2024-05-05] MEDS ORDERED: MELA5TAB40 PO (15:39)
[2024-05-05] MEDS ORDERED: ARIP400S IM (15:39)
[2024-05-05] MEDS ORDERED: DULO20CA71 PO (15:39)
[2024-05-05 21:02] VITALS: BP 127/74; PULSE 107; RESP 18; TEMP 98.2; O2SAT 95
[2024-05-05] MEDS ORDERED: CHLO25TA70 PO (22:27)
[2024-05-24] MEDS ORDERED: ARIPiprazole ER SUSPENSION 400 MG VIAL IM SCH (09:00)
== END 2024-05-06 13:38 | disposition home or self-care (01) | DRG 750 ==
LOC: EMS 17:46 → B2S 04-22 00:28
PROVIDERS: ADMIT Psychiatry & Neurology Psychiatry; ATTEND Psychiatry & Neurology Psychiatry
PROC: GZHZZZZ Group Psychotherapy (ICD-10-PCS; principal; 2024-04-22)
PROC: GZ58ZZZ Individual Psychotherapy, Cognitive-Behavioral (ICD-10-PCS; 2024-04-22)
PROC: GZ56ZZZ Individual Psychotherapy, Supportive (ICD-10-PCS; 2024-04-23)
DX: F25.9 Schizoaffective disorder, unspecified (principal); R45.851 Suicidal ideations; F12.20 Cannabis dependence, uncomplicated; F31.9 Bipolar disorder, unspecified; F15.20 Other stimulant dependence, uncomplicated; F06.4 Anxiety disorder due to known physiological condition; F17.200 Nicotine dependence, unspecified, uncomplicated; J44.9 Chronic obstructive pulmonary disease, unspecified; Z79.84 Long term (current) use of oral hypoglycemic drugs; Z91.198 Patient's noncompliance with other medical treatment and regimen for other reason
CPT/HCPCS: 80048; 80061; 80164; 82962; 83036; 84439; 84443; 84702; 85025; 86592; 86803; 87340; 99285; G0480; J0401; J1200; J1630; J2060